=== PATIENT | male | born 1995 | race Caucasian/White ===

== ENCOUNTER 2016-11-04 01:53 | Emergency (ER) | payer BC ==
[~2016-11-04] VITALS: Ht 175.3 cm; Wt 90.0 kg
[~2016-11-04 01:53] MED LIST: BENTYL20 MG PO; CITRATE OF MAG296 ML PO
[2016-11-04] MEDS ORDERED: PEN-VEE K,VEET500 MG PO (02:14)
[2016-11-04] MEDS ORDERED: PERCOCET 5/31 TABLET PO (02:14)
[2016-11-04 02:28] VITALS: BP 156/100
== END 2016-11-04 02:29 | disposition home or self-care (01) ==
LOC: EME 01:53
DX: K02.9 Dental caries, unspecified (principal)
CPT/HCPCS: 99281; 99283